=== PATIENT | male | born 1950 | race Caucasian/White ===

== ENCOUNTER 2018-07-23 14:00 | Inpatient (IN) ==
[2018-07-23 15:04] LABS: Basophils % 0.2 %; Eosinophils # 0.1 K/mcL (0.0-0.6); Eosinophils % 1.3 %; Hematocrit 34.2 % (37.5-50.1); Hemoglobin 11.1 g/dL (12.9-16.9); Immature Granulocytes % 0.2 % (0-4); Lymphocytes # 1.8 K/mcL (0.6-4.6); Lymphocytes % 34.3 %; Mean Corpuscular HGB Conc 32.5 g/dL (31.6-35.5); Mean Corpuscular Hemoglobin 31.9 pg (28.0-33.3); Mean Corpuscular Volume 98.3 fL (83.0-100.0); Mean Platelet Volume 9.5 fL (9.4-12.4); Monocytes # 0.5 K/mcL (0.0-1.3); Monocytes % 9.8 %; Neutrophils # 2.8 K/mcL (1.6-8.9); Platelet Count 176 K/mcL (140-400); Red Blood Count 3.48 M/mcL (4.19-5.50); Red Cell Distribution Width 16.1 % (11.5-14.5); Segmented Neutrophils % 54.2 %
--- NOTE | 2018-07-23 15:06 | Emergency Department Note ---
Disposition Clinical Impression: Pneumothorax Qualifiers: Pneumothorax type: unspecified pneumothorax Qualified Code(s): J93.9 - Pneumothorax, unspecified Disposition: Admitted As Inpatient Condition: Fair General Adult HPI - General Chief complaint: ED Shortness of Breath/Dyspnea Stated complaint: "sob sent by " Time Seen by Provider: 07/23/18 14:19 Source: patient Limitations: no limitations - History of Present Illness Pain Scale: 4 - Related Data Home Medications Medication Instructions Recorded Confirmed Aspirin Enteric Coated [Aspirin EC] 81 mg PO DAILY 06/20/15 07/23/18 Atenolol [Tenormin] 50 mg PO DAILY 06/20/15 07/23/18 Atorvastatin [Lipitor] 40 mg PO HS 06/20/15 07/23/18 Garlic [Garlic Oil] 1,000 mg PO DAILY 06/20/15 07/23/18 Multivitamin [Multivitamins] 1 each PO DAILY 06/20/15 07/23/18 Tamsulosin [Flomax] 0.4 mg PO DAILY 06/20/15 07/23/18 Budesonide/Formoterol 160/4.5 2 puff IH BIDR 07/23/18 07/23/18 [Symbicort 160/4.5] Clopidogrel [Plavix] 75 mg PO DAILY 07/23/18 07/23/18 Loratadine [Allergy Relief] 10 mg PO DAILY 07/23/18 07/23/18 Pantoprazole Sodium [Protonix] 20 mg PO DAILY 07/23/18 07/23/18 Tiotropium [Spiriva] 1 puff IH DAILY 07/23/18 07/23/18 Previous Rx's Medication Instructions Recorded Isosorbide MONOnitrate (24 HR) 30 mg PO DAILY #30 tab.er.24h 06/21/15 [Imdur] Albuterol Sulfate [Albuterol 1 puff IH QID PRN #1 puff 03/28/16 Inhaler] Allergies Allergy/AdvReac Type Severity Reaction Status Date / Time Barley AdvReac Diarrhea Verified 07/23/18 14:06 grass pollen-perennial rye, AdvReac Diarrhea Verified 07/23/18 14:06 standar wheat AdvReac Diarrhea Verified 07/23/18 14:06 Past Medical History - Past Medical History Medical history: Reports: non-contributory, asthma, COPD, GERD, hypertension Surgical history: Reports: other Psychiatric history: Reports: no psych history - Social History Smoking Status: Former smoker Smokeless Tobacco Status: No Alcohol use: Reports: heavy, recent Drug use: Reports: none Physical Exam - General Limitations: no limitations General appearance: alert Course Vital Signs Pulse Rate 76 07/23/18 14:04 Respiratory Rate 22 07/23/18 14:04 Blood Pressure 122/7 07/23/18 14:04 O2 Sat by Pulse Oximetry 92 07/23/18 14:04 Temperature 98 F 07/23/18 14:20 Pulse Rate 99 07/23/18 16:45 Respiratory Rate 20 07/23/18 17:10 Blood Pressure 137/92 07/23/18 17:10 O2 Sat by Pulse Oximetry 94 07/23/18 16:45 Oxygen Delivery Oxygen Delivery Nasal Cannula Medical Decision Making - Lab Data Result diagrams: 07/23/18 14:37 07/23/18 14:37 Lab Results 07/23/18 07/23/18 07/23/18 Range/Units 09:57 14:37 14:37 WBC 5.2 (4.3-11.1) K/mcL RBC 3.48 L (4.19-5.50) M/mcL Hgb 11.1 L (12.9-16.9) g/dL Hct 34.2 L (37.5-50.1) % MCV 98.3 (83.0-100.0) fL MCH 31.9 (28.0-33.3) pg MCHC 32.5 (31.6-35.5) g/dL RDW 16.1 H (11.5-14.5) % Plt Count 176 (140-400) K/mcL MPV 9.5 (9.4-12.4) fL Immature Gran % 0.2 (0-4) % Seg Neutrophils % 54.2 % Lymphocytes % 34.3 % Monocytes % 9.8 % Eosinophils % 1.3 % Basophils % 0.2 % Neutrophils # 2.8 (1.6-8.9) K/mcL Lymphocytes # 1.8 (0.6-4.6) K/mcL Monocytes # 0.5 (0.0-1.3) K/mcL Eosinophils # 0.1 (0.0-0.6) K/mcL Basophils # 0.0 (0.0-0.2) K/mcL Sodium 142 (136-145) mEq/L Potassium 4.0 (3.5-5.1) mEq/L Chloride 112 H (98-107) mEq/L Carbon Dioxide 25 (23-29) mEq/L BUN 10 (8-23) mg/dL Creatinine 0.89 (0.70-1.30) mg/dL Est GFR ( Amer) > 60 (> 60) Est GFR (Non-Af Amer) > 60 (> 60) BUN/Creatinine Ratio 11 (6-26) Glucose 64 L (70-105) mg/dL Calculated Osmolality 291 (280-300) Lactic Acid 1.5 (0.5-2.2) mmol/L Calcium 8.9 (8.6-10.3) mg/dL Troponin I < 0.03 (< 0.04) ng/mL B-Natriuretic Peptide (Less than 100) pg/mL 07/23/18 Range/Units 14:37 WBC (4.3-11.1) K/mcL RBC (4.19-5.50) M/mcL Hgb (12.9-16.9) g/dL Hct (37.5-50.1) % MCV (83.0-100.0) fL MCH (28.0-33.3) pg MCHC (31.6-35.5) g/dL RDW (11.5-14.5) % Plt Count (140-400) K/mcL MPV (9.4-12.4) fL Immature Gran % (0-4) % Seg Neutrophils % % Lymphocytes % % Monocytes % % Eosinophils % % Basophils % % Neutrophils # (1.6-8.9) K/mcL Lymphocytes # (0.6-4.6) K/mcL Monocytes # (0.0-1.3) K/mcL Eosinophils # (0.0-0.6) K/mcL Basophils # (0.0-0.2) K/mcL Sodium (136-145) mEq/L Potassium (3.5-5.1) mEq/L Chloride (98-107) mEq/L Carbon Dioxide (23-29) mEq/L BUN (8-23) mg/dL Creatinine (0.70-1.30) mg/dL Est GFR ( Amer) (> 60) Est GFR (Non-Af Amer) (> 60) BUN/Creatinine Ratio (6-26) Glucose (70-105) mg/dL Calculated Osmolality (280-300) Lactic Acid (0.5-2.2) mmol/L Calcium (8.6-10.3) mg/dL Troponin I (< 0.04) ng/mL B-Natriuretic Peptide 106 H (Less than 100) pg/mL Attestation Statement - Attestation Attestation: I examined this patient and my medical decision-making was reviewed with the Resident Physician. I agree with the documented findings, disposition and treatment plan as described except to the extent set forth below. Patient to ED with shortness of breath. Weakness. Patient's 2 days status post needle biopsy with Dr. Rincon. States he has been increasingly dyspneic and weak. On examination he is in no acute distress. Speaking full senses. Good breath sounds bilaterally. Plan. Portable chest shows a pneumothorax on the left with no tension. Patient will need chest tube. Pt is on Plavix. After written consent pneumotach was placed by Dr. Ferguson with my constant supervision. Uncomplicated. Good placement on chest x-ray. Patient has been discuss with pulmonology. Admitted to medicine. Chest X-Ray 07/23/18 16:35 IMPRESSION: Placement of a left-sided chest tube. Decreased size of left apical pneumothorax. Left pleural effusion with left basilar atelectasis. Consolidation of the left lower lobe may represent pulmonary hemorrhage from recent prior biopsy D/ / Evelio Juan MD / Evelio Juan MD Interpreting Provider: Evelio Juan MD
--- NOTE | 2018-07-23 15:07 | Emergency Department Note ---
Disposition Clinical Impression: Pneumothorax Qualifiers: Pneumothorax type: unspecified pneumothorax Qualified Code(s): J93.9 - Pneumothorax, unspecified Disposition: Admitted As Inpatient Condition: Fair General Adult HPI - General Chief complaint: ED Shortness of Breath/Dyspnea Stated complaint: "sob sent by " Time Seen by Provider: 07/23/18 14:19 Source: patient Mode of arrival: ambulatory Limitations: no limitations Nursing Notes Reviewed: Yes Vital Signs Reviewed: Yes - History of Present Illness HPI Narrative: 68-year-old male presents for evaluation of difficulty breathing. Patient did have a needle biopsy by pulmonary 2 days ago. Patient notes worsening dyspnea since then. Patient denies any hemoptysis or cough. No fevers. Patient was sent over by pulmonary. Denies any nausea vomiting. Pain Scale: 4 - Related Data Home Medications Medication Instructions Recorded Confirmed Aspirin Enteric Coated [Aspirin EC] 81 mg PO DAILY 06/20/15 07/23/18 Atenolol [Tenormin] 50 mg PO DAILY 06/20/15 07/23/18 Atorvastatin [Lipitor] 40 mg PO HS 06/20/15 07/23/18 Garlic [Garlic Oil] 1,000 mg PO DAILY 06/20/15 07/23/18 Multivitamin [Multivitamins] 1 each PO DAILY 06/20/15 07/23/18 Tamsulosin [Flomax] 0.4 mg PO DAILY 06/20/15 07/23/18 Budesonide/Formoterol 160/4.5 2 puff IH BIDR 07/23/18 07/23/18 [Symbicort 160/4.5] Clopidogrel [Plavix] 75 mg PO DAILY 07/23/18 07/23/18 Loratadine [Allergy Relief] 10 mg PO DAILY 07/23/18 07/23/18 Pantoprazole Sodium [Protonix] 20 mg PO DAILY 07/23/18 07/23/18 Tiotropium [Spiriva] 1 puff IH DAILY 07/23/18 07/23/18 Previous Rx's Medication Instructions Recorded Isosorbide MONOnitrate (24 HR) 30 mg PO DAILY #30 tab.er.24h 06/21/15 [Imdur] Albuterol Sulfate [Albuterol 1 puff IH QID PRN #1 puff 03/28/16 Inhaler] Allergies Allergy/AdvReac Type Severity Reaction Status Date / Time Barley AdvReac Diarrhea Verified 07/23/18 14:06 grass pollen-perennial rye, AdvReac Diarrhea Verified 07/23/18 14:06 standar wheat AdvReac Diarrhea Verified 07/23/18 14:06 All systems ED: reviewed and negative except as stated. Constitutional: Denies: fever Cardiovascular: Denies: chest pain Respiratory: Reports: dyspnea. Denies: cough Gastrointestinal: Denies: abdominal pain, nausea, vomiting Past Medical History - Past Medical History Source: patient Medical history: Reports: non-contributory, asthma, COPD, GERD, hypertension Surgical history: Reports: other Psychiatric history: Reports: no psych history - Social History Smoking Status: Former smoker Smokeless Tobacco Status: No Alcohol use: Reports: heavy, recent Drug use: Reports: none Physical Exam - General Limitations: no limitations General appearance: alert, in no apparent distress - Head Head exam: atraumatic, normocephalic, normal inspection - Eye Eye exam: Present: normal appearance, PERRL, EOMI - ENT ENT exam: normal exam, normal oropharynx, mucous membranes moist - Neck Neck exam: Present: normal inspection, trachea midline - Chest Chest inspection: Present: normal inspection, symmetric chest wall rise - Respiratory Respiratory exam: Present: normal lung sounds bilaterally. Absent: respiratory distress - Cardiovascular Cardiovascular exam: Present: regular rate, normal rhythm. Absent: systolic murmur - Abdominal Exam Abdominal exam: Present: soft, Non-Tender - Extremities Exam Extremities exam: Present: normal inspection. Absent: pedal edema - Back Exam Back exam: Present: normal inspection - Neurological Exam Neurological exam: Present: alert, oriented X3 - Skin Skin exam: Present: warm, dry, intact, normal color Course Course Narrative: Patient is on 4 L supplemental oxygen. No conversational dyspneic. Patient does not have a tension pneumothorax. Will discuss the case with pulmonary and will admit to the hospital service for observation and oxygen supplementation following decompression. - Consultations Consultation #1: Spoke with Dr. Funez who felt that a pneumo-dart and/or pigtail would be appropriate. States that they will see the patient in the morning. Time: 15:07 Vital Signs Pulse Rate 76 07/23/18 14:04 Respiratory Rate 22 07/23/18 14:04 Blood Pressure 122/7 07/23/18 14:04 O2 Sat by Pulse Oximetry 92 07/23/18 14:04 Temperature 98 F 07/23/18 14:20 Pulse Rate 99 07/23/18 16:45 Respiratory Rate 20 07/23/18 17:10 Blood Pressure 137/92 07/23/18 17:10 O2 Sat by Pulse Oximetry 94 07/23/18 16:45 Oxygen Delivery Oxygen Delivery Nasal Cannula Procedures - Chest Tube Chest Tube 1 Chest Tube Location: mid axillary line Chest Tube Prep: betadine prep, sterile drapes applied Local Anesthetic: lidocaine 1%, with epi Amount of Anesthesia Used (mL): 10 Post Procedure: sutured to skin, sterile dressing applied Tube Drainage: none Post Procedure CXR?: Yes Patient Tolerated Procedure: Yes Medical Decision Making - MDM Narrative Medical decision making narrative: Patient presented for a left-sided pneumothorax status post needle biopsy. Patient did not have a tension pneumothorax. Required some supplemental oxygen. Discussed the case with pulmonary will see the patient on the hospitalist service. Patient required a chest tube with decompression. Patient will be admitted to the hospitalist service. - Lab Data Lab results reviewed: Yes I reviewed the patient's lab results. Result diagrams: 07/23/18 14:37 07/23/18 14:37 Lab Results 07/23/18 07/23/18 07/23/18 Range/Units 09:57 14:37 14:37 WBC 5.2 (4.3-11.1) K/mcL RBC 3.48 L (4.19-5.50) M/mcL Hgb 11.1 L (12.9-16.9) g/dL Hct 34.2 L (37.5-50.1) % MCV 98.3 (83.0-100.0) fL MCH 31.9 (28.0-33.3) pg MCHC 32.5 (31.6-35.5) g/dL RDW 16.1 H (11.5-14.5) % Plt Count 176 (140-400) K/mcL MPV 9.5 (9.4-12.4) fL Immature Gran % 0.2 (0-4) % Seg Neutrophils % 54.2 % Lymphocytes % 34.3 % Monocytes % 9.8 % Eosinophils % 1.3 % Basophils % 0.2 % Neutrophils # 2.8 (1.6-8.9) K/mcL Lymphocytes # 1.8 (0.6-4.6) K/mcL Monocytes # 0.5 (0.0-1.3) K/mcL Eosinophils # 0.1 (0.0-0.6) K/mcL Basophils # 0.0 (0.0-0.2) K/mcL Sodium 142 (136-145) mEq/L Potassium 4.0 (3.5-5.1) mEq/L Chloride 112 H (98-107) mEq/L Carbon Dioxide 25 (23-29) mEq/L BUN 10 (8-23) mg/dL Creatinine 0.89 (0.70-1.30) mg/dL Est GFR ( Amer) > 60 (> 60) Est GFR (Non-Af Amer) > 60 (> 60) BUN/Creatinine Ratio 11 (6-26) Glucose 64 L (70-105) mg/dL Calculated Osmolality 291 (280-300) Lactic Acid 1.5 (0.5-2.2) mmol/L Calcium 8.9 (8.6-10.3) mg/dL Troponin I < 0.03 (< 0.04) ng/mL B-Natriuretic Peptide (Less than 100) pg/mL 07/23/18 Range/Units 14:37 WBC (4.3-11.1) K/mcL RBC (4.19-5.50) M/mcL Hgb (12.9-16.9) g/dL Hct (37.5-50.1) % MCV (83.0-100.0) fL MCH (28.0-33.3) pg MCHC (31.6-35.5) g/dL RDW (11.5-14.5) % Plt Count (140-400) K/mcL MPV (9.4-12.4) fL Immature Gran % (0-4) % Seg Neutrophils % % Lymphocytes % % Monocytes % % Eosinophils % % Basophils % % Neutrophils # (1.6-8.9) K/mcL Lymphocytes # (0.6-4.6) K/mcL Monocytes # (0.0-1.3) K/mcL Eosinophils # (0.0-0.6) K/mcL Basophils # (0.0-0.2) K/mcL Sodium (136-145) mEq/L Potassium (3.5-5.1) mEq/L Chloride (98-107) mEq/L Carbon Dioxide (23-29) mEq/L BUN (8-23) mg/dL Creatinine (0.70-1.30) mg/dL Est GFR ( Amer) (> 60) Est GFR (Non-Af Amer) (> 60) BUN/Creatinine Ratio (6-26) Glucose (70-105) mg/dL Calculated Osmolality (280-300) Lactic Acid (0.5-2.2) mmol/L Calcium (8.6-10.3) mg/dL Troponin I (< 0.04) ng/mL B-Natriuretic Peptide 106 H (Less than 100) pg/mL - Radiology Data Radiology results reviewed: Yes I reviewed the patient's radiology results. Chest X-Ray 07/23/18 14:19 IMPRESSION: Moderately sized left pneumothorax without evidence for tension. Redemonstration of nodules to the left lower lung zone correlating with nodules, one of which was previously biopsied, to the left lower lobe, better demonstrated on prior CT chest 05/25/2018. Findings were discussed with Komal Starkey at 2:54 pm on 07/23/2018. D/ / 07/23/2018 14:57:47 Ruy Torres MD / bruce Interpreting Provider: Ruy Torres MD Chest X-Ray 07/23/18 16:35 IMPRESSION: Placement of a left-sided chest tube. Decreased size of left apical pneumothorax. Left pleural effusion with left basilar atelectasis. Consolidation of the left lower lobe may represent pulmonary hemorrhage from recent prior biopsy D/ / Evelio Juan MD / Evelio Juan MD Interpreting Provider: Evelio Juan MD - EKG Data EKG #1 EKG attestation: Yes I reviewed and interpreted this EKG. EKG shows normal: sinus rhythm Rate: normal Rhythm: NSR Pavilion/QRS: normal Interpretation: no acute changes, nonspecific ST-T wave changes S.Vitaly - Barb Situation: Demographics Background: Presenting Complaint Assessment: Vital Signs, Course and respsone to treatment, Patient/Family Expectation Recommendation: Barrier(s) to disposition, Recommendation based on pending studies, treatments, or consults Barb Report Given to: Dr. Candy Day Repor Time: 15:40
[2018-07-23] MEDS ORDERED: Lidocaine/EPI 1:100k 1% 30 ML VIAL INFILT ONE (15:17)
[2018-07-23] MEDS ORDERED: *HR* FentaNYL (PF) 100 MCG/2 ML VIAL IVP ONE ×2 (15:17→16:49)
[2018-07-23] MEDS ORDERED: *HR* Midazolam HCl 2 MG/2 ML VIAL IVP ONE (15:22)
[2018-07-23 15:25] LABS: Troponin I < 0.03 ng/mL (< 0.04)
[2018-07-23 15:38] LABS: BUN/Creatinine Ratio 11 (6-26); Blood Urea Nitrogen 10 mg/dL (8-23); Calcium 8.9 mg/dL (8.6-10.3); Carbon Dioxide 25 mEq/L (23-29); Chloride 112 mEq/L (98-107); Glucose 64 mg/dL (70-105); Osmolality,Calculated 291 (280-300); Sodium 142 mEq/L (136-145); eGFR For Non-African Americans > 60 (> 60)
[2018-07-23] MEDS ORDERED: Naloxone 0.4 MG/ML INJ IVP PRN (17:36)
--- NOTE | 2018-07-23 17:43 | Internal Med History&Physical ---
Date of Encounter: 07/23/18 Time of Encounter: 17:41 Internal Medicine - H&P: HPI Chief complaint: shortness of breath Admitted From: Home Plans for Post Hospital Care: Home History of present illness: Mr. Adrian is a 68 year old male past medical history of coronary artery disease status post stenting in 2014, celiac disease, hypertension, hyperlipidemia, COPD, and pulmonary nodules status post CT-guided needle biopsy on Thursday. Patient reports that since Thursday after a CT-guided needle biopsy, he has been feeling slightly short of breath. The shortness of breath has been getting worse over the past couple of days, but today while he was playing golf, he shortness of breath became unbearable and he decided to come to the emergency room. He denies dizziness, lightheadedness, but reports pain in the left side of the chest at a location where the CT-guided biopsy was done. In the ED patient was found to have Moderately sized left pneumothorax without evidence for tension. For which placement of a left-sided chest tube was done. Past Med Surg Social Fam HX - Past Medical History Medical history: non-contributory, asthma, COPD, GERD, hypertension Additional medical history: celiac disease Psychiatric history: no psych history - Past Surgical History Surgical History: other Additional surgical history: bilateral wrist surgery. left knee surgery 2011. left elbow surgery. heart stent - Social History Smoking Status: Former smoker Smokeless Tobacco Status: No Alcohol use: heavy, recent Drug use: none Internal Medicine - H&P: Meds Aspirin Enteric Coated [Aspirin EC] 81 mg PO DAILY 06/20/15 [History] Atenolol [Tenormin] 50 mg PO DAILY 06/20/15 [History] Atorvastatin [Lipitor] 40 mg PO HS 06/20/15 [History] Garlic [Garlic Oil] 1,000 mg PO DAILY 06/20/15 [History] Multivitamin [Multivitamins] 1 each PO DAILY 06/20/15 [History] Tamsulosin [Flomax] 0.4 mg PO DAILY 06/20/15 [History] Isosorbide MONOnitrate (24 HR) [Imdur] 30 mg PO DAILY #30 tab.er.24h 06/21/15 [ Rx] Albuterol Sulfate [Albuterol Inhaler] 1 puff IH QID PRN #1 puff 03/28/16 [Rx] Budesonide/Formoterol 160/4.5 [Symbicort 160/4.5] 2 puff IH BIDR 07/23/18 [ History] Clopidogrel [Plavix] 75 mg PO DAILY 07/23/18 [History] Loratadine [Allergy Relief] 10 mg PO DAILY 07/23/18 [History] Pantoprazole Sodium [Protonix] 20 mg PO DAILY 07/23/18 [History] Tiotropium [Spiriva] 1 puff IH DAILY 07/23/18 [History] 3 Allergy/AdvReac Type Severity Reaction Status Date / Time Barley AdvReac Diarrhea Verified 07/23/18 14:06 grass pollen-perennial rye, AdvReac Diarrhea Verified 07/23/18 14:06 standar wheat AdvReac Diarrhea Verified 07/23/18 14:06 All Systems PM: A 10-system review of systems was performed and is negative for pertinent findings except as documented above in the HPI. - Constitutional Constitutional: weakness, no anorexia, no chills, no lethargy - EENT Eyes: no irritation Nose, mouth and throat: no change in voice, no dry mouth, no dysphagia, no mouth pain - Cardiovascular Cardiovascular ROS IM: dyspnea, dyspnea on exertion, no claudication, no diaphoresis, no irregular heart rhythm, no lightheadedness, no palpitations, no paroxysmal nocturnal dyspnea, no syncope - Respiratory Respiratory: cough (Non productive.), dyspnea on exertion, no wheezing, no excessive phlegm production - Gastrointestinal Gastrointestinal: no abdominal pain, no change in bowel habits, no early satiety - Genitourinary Genitourinary ROS male: no difficulty urinating, no nocturia - Musculoskeletal Musculoskeletal ROS IM: no atrophy, no back pain, no limited range of motion - Integumentary Integumentary IM: no erythema - Neurological Neurological ROS: no abnormal hearing, no abnormal movements, no abnormal speech , no confusion - Psychiatric Psychiatric: no anxiety - Endocrine Endocrine IM: no cold intolerance, no flushing, no polyuria - Constitutional Vitals: Temp Pulse Resp BP Pulse Ox 98 F 99 20 137/92 94 07/23/18 14:20 07/23/18 16:45 07/23/18 17:10 07/23/18 17:10 07/23/18 16:45 Exam: General: Alert and oriented 3. In no acute distress. Skin:Normal color, no rash, no lesions. Cardiovascular: Normal S1 & S2, no rubs, murmurs or gallops. No JVD. Pulse regular. Lungs: Clear to auscultation bilaterally, no wheezes or crackles. Left chest tube. Abdomen: Soft, non-tender, no rigidity. Extremities: No deformity, no edema or tenderness, no joint swelling or clubbing. Neurological: Normal cognition and motor skills. Rest of the physical exam is non contributory Internal Med - H&P Results - Labs CBC & Chem 7: 07/23/18 14:37 07/23/18 14:37 - Assessment and plan (1) Pneumothorax Current Visit: Yes Status: Acute Assessment and plan: Possible associated with a CT guided needle biopsy done on Thursday. Plan: - Pulmonology has been consulted - Chest tube insertion on the right chest - Pain control with Tramadol 50mg Q6HR PO PRN - Telemetry monitoring - Incentive Spirometry Qualifiers: Pneumothorax type: unspecified pneumothorax Qualified Code(s): J93.9 - Pneumothorax, unspecified (2) Respiratory distress, acute Current Visit: Yes Status: Acute Assessment and plan: Secondary to pneumothorax. Plan of care as #1. (3) Hypertension Current Visit: Yes Status: Acute Assessment and plan: BP well controlled. Plan: - Atenolol 50mg PO daily. Home dose - Hydralazine 5mg/IV Q6HR PRN for SBP >190 Qualifiers: Hypertension type: unspecified Qualified Code(s): I10 - Essential (primary ) hypertension (4) CAD (coronary artery disease) Current Visit: No Status: Acute Assessment and plan: Patient with a History of stenting on 2104. Plan: - Will hold Aspirin and Plavix until clarified with janitor supervisor about appropriate time to re-start medication. Qualifiers: Coronary Disease-Associated Artery/Lesion type: unspecified vessel or lesion type Associated angina: with unspecified angina Qualified Code(s): I25.119 - Atherosclerotic heart disease of [place] coronary artery with unspecified angina pectoris (5) Dyslipidemia Current Visit: No Status: Chronic Assessment and plan: On statin. Will continue home medications. (6) COPD (chronic obstructive pulmonary disease) Current Visit: Yes Status: Acute Assessment and plan: Plan: - Nebs PRN Qualifiers: COPD type: emphysema Emphysema type: unspecified Qualified Code(s): J43.9 - Emphysema, unspecified (7) Alcohol abuse Current Visit: Yes Status: Acute Assessment and plan: Patient reports drinking about 2 shots of whiskey and 1 six packs or beers every day. Plan: - Lorazepam 1mg/IV Q6HR PRN for DT like symptoms (8) DVT prophylaxis Current Visit: Yes Status: Acute Assessment and plan: No chemical DVT prophylaxis. 'Mechanical DVT prophylaxis with PlexiPulses b/l. - Time Spent With Patient Total time spent is greater than 50% in coordination of care (as documented) at patient's floor/unit and/or counseling patient: Greater than 35 minutes
[2018-07-23] MEDS: Budesonide/Formoterol 80/4.5 MDI IH SCH (19:53)
[2018-07-23] MEDS: traMADol 50 MG TABLET PO PRN (20:00)
[2018-07-23] MEDS: *HR* LORazepam 2 MG/ML VIAL IVP PRN (22:27)
[2018-07-24] MEDS: *HR* LORazepam 2 MG/ML VIAL IVP PRN (03:25)
[2018-07-24 06:22] LABS: Basophils % 0.2 %; Eosinophils # 0.1 K/mcL (0.0-0.6); Eosinophils % 2.7 %; Hematocrit 34.1 % (37.5-50.1); Hemoglobin 11.1 g/dL (12.9-16.9); Immature Granulocytes % 0.5 % (0-4); Lymphocytes # 1.7 K/mcL (0.6-4.6); Lymphocytes % 38.2 %; Mean Corpuscular HGB Conc 32.6 g/dL (31.6-35.5); Mean Corpuscular Hemoglobin 31.9 pg (28.0-33.3); Mean Platelet Volume 9.5 fL (9.4-12.4); Monocytes # 0.4 K/mcL (0.0-1.3); Neutrophils # 2.1 K/mcL (1.6-8.9); Platelet Count 159 K/mcL (140-400); Red Blood Count 3.48 M/mcL (4.19-5.50); Red Cell Distribution Width 15.9 % (11.5-14.5); Segmented Neutrophils % 48.4 %
[2018-07-24 06:41] LABS: BUN/Creatinine Ratio 15 (6-26); Blood Urea Nitrogen 12 mg/dL (8-23); Calcium 8.4 mg/dL (8.6-10.3); Carbon Dioxide 22 mEq/L (23-29); Chloride 108 mEq/L (98-107); Glucose 90 mg/dL (70-105); Osmolality,Calculated 283 (280-300); Phosphorous 3.1 mg/dL (2.7-4.5); Sodium 137 mEq/L (136-145); eGFR For Non-African Americans > 60 (> 60)
--- NOTE | 2018-07-24 06:57 | Pulmonology Consult Note ---
<ArminChito W - Last Filed: 07/24/18 10:54> Date of Encounter: 07/24/18 Medications and Allergies Aspirin Enteric Coated [Aspirin EC] 81 mg PO DAILY 06/20/15 [History] Atenolol [Tenormin] 50 mg PO DAILY 06/20/15 [History] Atorvastatin [Lipitor] 40 mg PO HS 06/20/15 [History] Garlic [Garlic Oil] 1,000 mg PO DAILY 06/20/15 [History] Multivitamin [Multivitamins] 1 each PO DAILY 06/20/15 [History] Tamsulosin [Flomax] 0.4 mg PO DAILY 06/20/15 [History] Isosorbide MONOnitrate (24 HR) [Imdur] 30 mg PO DAILY #30 tab.er.24h 06/21/15 [ Rx] Albuterol Sulfate [Albuterol Inhaler] 1 puff IH QID PRN #1 puff 03/28/16 [Rx] Budesonide/Formoterol 160/4.5 [Symbicort 160/4.5] 2 puff IH BIDR 07/23/18 [ History] Clopidogrel [Plavix] 75 mg PO DAILY 07/23/18 [History] Loratadine [Allergy Relief] 10 mg PO DAILY 07/23/18 [History] Pantoprazole Sodium [Protonix] 20 mg PO DAILY 07/23/18 [History] Tiotropium [Spiriva] 1 puff IH DAILY 07/23/18 [History] 3 Allergy/AdvReac Type Severity Reaction Status Date / Time Barley AdvReac Diarrhea Verified 07/23/18 14:06 grass pollen-perennial rye, AdvReac Diarrhea Verified 07/23/18 14:06 standar wheat AdvReac Diarrhea Verified 07/23/18 14:06 All Systems: The remainder of the systems were reviewed and are negative Physical Examination Vital Signs: Vital Signs, Last 4 Hours Temp Pulse Resp BP Pulse Ox 07/24/18 10:23 75 18 135/91 94 07/24/18 07:23 14 93 07/24/18 06:56 98.2 F 73 18 135/90 93 Results - Laboratory Findings CBC and BMP: 07/24/18 06:12 07/24/18 06:12 Abnormal lab findings: Abnormal lab results RBC 3.48 M/mcL (4.19-5.50) L 07/24/18 06:12 Hgb 11.1 g/dL (12.9-16.9) L 07/24/18 06:12 Hct 34.1 % (37.5-50.1) L 07/24/18 06:12 RDW 15.9 % (11.5-14.5) H 07/24/18 06:12 Chloride 108 mEq/L (98-107) H 07/24/18 06:12 Carbon Dioxide 22 mEq/L (23-29) L 07/24/18 06:12 Calcium 8.4 mg/dL (8.6-10.3) L 07/24/18 06:12 B-Natriuretic Peptide 106 pg/mL (Less than 100) H 07/23/18 14:37 - Clinical Findings Intake & Output: Intake & Output 07/23/18 07/24/18 07/24/18 23:59 07:59 15:59 Intake Total 240 / 240 Output Total 217 / 217 809 / 809 250 / 250 Balance -217 / -217 -569 / -569 -250 / -250 Weight 97 kg 97 kg Consult Discharge Plan - Plan [facility]: [facility] Care Provider[facility] - - Attending Attestation I examined this patient and my medical decision-making was reviewed with the Resident Physician. I agree with the documented findings, disposition and treatment plan as described except to the extent set forth below. We independently had [id number] contact with the patient Patient seen and examined at bedside Labs, radiology, chart personally reviewed. Impression: -Iatrogenic pneumothorax -PET avid lung nodule -COPD Recs: -Chest tube to waterseal now repeat chest x-ray can remove if no pneumothorax -Follow-up outpatient pulmonary for pathology results and plan of care -Continue bronchodilators <Nomi Weir - Last Filed: 07/24/18 11:40> Date of Encounter: 07/24/18 Time of Encounter: 07:55 Assessment and Plan (1) Pneumothorax Current Visit: Yes Status: Acute Likely 2/[address] guided biopsy 3 days ago for pulmonary nodules. Progressive SOB since, L apical pneumothorax found in ED yesterday. L apical chest tube placed in ED. Has been on wall suction overnight. CXR this morning indicated pneumothorax no longer seen. Plan to place on water seal this morning and repeat cxr. If stable after cxr, we can remove chest tube and monitor for a couple hours after removal. Ok to dc home if no suspicion of recurrent pneumo after chest tube removal. Continue to increase use of IS. Qualifiers: Pneumothorax type: unspecified pneumothorax Qualified Code(s): J93.9 - Pneumothorax, unspecified (2) COPD (chronic obstructive pulmonary disease) Current Visit: Yes Status: Acute Dr Willis pt. On spiriva, symbicort, and rescue albuterol at home. No home O2. Continue current therapy. Qualifiers: COPD type: emphysema Emphysema type: unspecified Qualified Code(s): J43.9 - Emphysema, unspecified History of Present Illness Consult date: 07/24/18 Requesting physician: Scot Ferguson Reason for consult: pneumothorax Chief complaint: SOB History of present illness: Mr Adrian is a 68 year old man with pmh significant for COPD, asthma, CAD s/p LAD stent 2014, and pulmonary nodule s/p CT guided biopsy on 3 days ago. Since the pulmonary nodule biopsy 3 days ago he has had increasing SOB from baseline. While attempting to plaay golf yesterday he became very SOB he said was unbearable and decided to go to ED. A L apical pneumothorax was discovered in the ED and L apical chest tube placed. Today, he says he is breathing better but has L peristernal chest pain he describes as a sharp stabbing pain when attempting to take a deep breath. He has been using IS marginally due to pain while trying to use more effort. He additionally has a non productive cough that is not new or worsening from baseline. Culture from May 2018 bronch grew Aspergillus fumigatus and was not started on antifungals due to medication side effects. Denies subjective fever/chills, hemoptysis, pain where chest tube enters, dysphagia, N/V or abdominal pain. He uses spiriva, symbicort, and albuterol at home for COPD as prescribed, he is followed by Dr Willis as outpatient. Past Med Surg Social Fam HX - Past Medical History Medical history: non-contributory, asthma, COPD, GERD, hypertension Additional medical history: celiac disease, sleep apnea Psychiatric history: no psych history - Past Surgical History Surgical History: other Additional surgical history: bilateral wrist surgery. left knee surgery 2011. left elbow surgery. heart stent - Social History Smoking Status: Former smoker Smokeless Tobacco Status: No Alcohol use: heavy, recent Drug use: none - Family History Father Living Status: Age at : 59 Cause of : Leukemia Hx Family Cancer: Yes (Leukemia) Mother Living Status: Age at : 82 Cause of : Brain annurysm Hx Family Cardiac Disorders: Yes (CAD, [place], HTN, CHF, HLD) All Systems: The remainder of the systems were reviewed and are negative Physical Examination Vital Signs: Vital Signs, Last 4 Hours Temp Pulse Resp BP Pulse Ox 07/24/18 04:00 98.2 F 65 16 150/93 96 07/24/18 03:39 15 93 General appearance: no acute distress, alert, other (L chest tube in place, serosanguinous discharge, on wall suction, no airleaks with coughing. ) Eyes: nonicteric ENT: oropharynx moist Effort: normal Auscultation: bilateral: diminished breath sounds (Basilar L>R), other (Shallow , pain with deep inspiration ) Cardiovascular: regular rate and rhythm Gastrointestinal: normoactive bowel sounds, soft, non-tender, non-distended Extremities: no cyanosis, no edema mood appropriate Results - Laboratory Findings CBC and BMP: 07/24/18 06:12 07/24/18 06:12 Abnormal lab findings: Abnormal lab results RBC 3.48 M/mcL (4.19-5.50) L 07/24/18 06:12 Hgb 11.1 g/dL (12.9-16.9) L 07/24/18 06:12 Hct 34.1 % (37.5-50.1) L 07/24/18 06:12 RDW 15.9 % (11.5-14.5) H 07/24/18 06:12 Chloride 108 mEq/L (98-107) H 07/24/18 06:12 Carbon Dioxide 22 mEq/L (23-29) L 07/24/18 06:12 Calcium 8.4 mg/dL (8.6-10.3) L 07/24/18 06:12 B-Natriuretic Peptide 106 pg/mL (Less than 100) H 07/23/18 14:37 - Clinical Findings Intake & Output: Intake & Output 07/23/18 07/23/18 07/24/18 15:59 23:59 07:59 Intake Total 240 / 240 Output Total 217 / 217 809 / 809 Balance -217 / -217 -569 / -569 Weight 97 kg 97 kg
[2018-07-24] MEDS: Budesonide/Formoterol 80/4.5 MDI IH SCH (07:23)
[2018-07-24] MEDS: traMADol 50 MG TABLET PO PRN (09:47)
[2018-07-24 10:24] VITALS: BP 135/91
--- NOTE | 2018-07-24 12:46 | Event Note ---
Date of Encounter: 07/24/18 Time of Encounter: 12:43 Patient with radiographic stability after waterseal trial without evidence of air leak. Chest tube was removed at bedside and petroleum gauze dressing with overlying Tegaderm applied as occlusive dressing patient tolerated without cardiopulmonary complication and was monitored on telemetry the entire time. Chest x-ray pending at this time. If no evidence of pneumothorax recommend monitoring for the next 2-3 hours inpatient and then if stable can be discharged safely from a pulmonary perspective with outpatient pulmonary follow- up. I explained to the patient that if he has any symptoms of worsening dyspnea or chest pain to return to the emergency room at once or call 911.
--- NOTE | 2018-07-24 13:46 | Discharge Summary ---
- NOTES TO OUTPATIENT PROVIDER Notes to Outpatient Provider: With the contract lead within a week. Date of Encounter: 07/24/18 Time of Encounter: 13:44 - Discharge Diagnosis (1) Pneumothorax Priority: Primary Status: Resolved Assessment and Plan: Following a CT-guided biopsy. Qualifiers: Pneumothorax type: unspecified pneumothorax Qualified Code(s): J93.9 - Pneumothorax, unspecified (2) Respiratory distress, acute Priority: Secondary Status: Resolved (3) Hypertension Priority: Secondary Status: Chronic Qualifiers: Hypertension type: unspecified Qualified Code(s): I10 - Essential (primary ) hypertension (4) CAD (coronary artery disease) Priority: Secondary Status: Chronic Qualifiers: Coronary Disease-Associated Artery/Lesion type: unspecified vessel or lesion type Associated angina: with unspecified angina Qualified Code(s): I25.119 - Atherosclerotic heart disease of [place] coronary artery with unspecified angina pectoris (5) Dyslipidemia Priority: Secondary Status: Chronic (6) COPD (chronic obstructive pulmonary disease) Priority: Secondary Status: Chronic Qualifiers: COPD type: emphysema Emphysema type: unspecified Qualified Code(s): J43.9 - Emphysema, unspecified (7) Alcohol abuse Priority: Secondary Status: Chronic (8) DVT prophylaxis Priority: Secondary Status: Chronic Hospital course: Mr. Adrian is a 68 year old male patient presented to the emergency room complaining of shortness of breath. Patient found to have left lung pneumothorax. Patient reports that 3 days before his presentation to the emergency room, he had a CT-guided biopsy done, for a lung nodule. Patient treated with insertion of a chest tube. After 24-hour chest tube was changed to waterseal, removed after the pneumothorax had resolved. Following x-ray showed resolution of the pneumothorax. Pulmonology recommended to discharge the patient on following up with them within a week. - Time Spent with Patient Total time spent providing and/or coordinating discharge services: Less than 30 minutes - Discharge Medications Home Medications: Aspirin Enteric Coated [Aspirin EC] 81 mg PO DAILY 06/20/15 [History] Atenolol [Tenormin] 50 mg PO DAILY 06/20/15 [History] Atorvastatin [Lipitor] 40 mg PO HS 06/20/15 [History] Garlic [Garlic Oil] 1,000 mg PO DAILY 06/20/15 [History] Multivitamin [Multivitamins] 1 each PO DAILY 06/20/15 [History] Tamsulosin [Flomax] 0.4 mg PO DAILY 06/20/15 [History] Isosorbide MONOnitrate (24 HR) [Imdur] 30 mg PO DAILY #30 tab.er.24h 06/21/15 [ Rx] Albuterol Sulfate [Albuterol Inhaler] 1 puff IH QID PRN #1 puff 03/28/16 [Rx] Budesonide/Formoterol 160/4.5 [Symbicort 160/4.5] 2 puff IH BIDR 07/23/18 [ History] Clopidogrel [Plavix] 75 mg PO DAILY 07/23/18 [History] Loratadine [Allergy Relief] 10 mg PO DAILY 07/23/18 [History] Pantoprazole Sodium [Protonix] 20 mg PO DAILY 07/23/18 [History] Tiotropium [Spiriva] 1 puff IH DAILY 07/23/18 [History] Allergies/Adverse Reactions: 3 Allergy/AdvReac Type Severity Reaction Status Date / Time Barley AdvReac Diarrhea Verified 07/23/18 14:06 grass pollen-perennial rye, AdvReac Diarrhea Verified 07/23/18 14:06 standar wheat AdvReac Diarrhea Verified 07/23/18 14:06 Date of admission: 07/23/18 16:47 [facility] care physician: [facility] - Constitutional Vitals: Temp Pulse Resp BP Pulse Ox 98.2 F 75 18 135/91 94 07/24/18 06:56 07/24/18 10:23 07/24/18 11:28 07/24/18 10:23 07/24/18 11:28 Exam: General: Alert and oriented 3. In no acute distress. Skin:Normal color, no rash, no lesions. Cardiovascular: Normal S1 & S2, no rubs, murmurs or gallops. No JVD. Pulse regular. Lungs: Clear to auscultation bilaterally, no wheezes or crackles. Abdomen: Soft, non-tender, no rigidity. Extremities: No deformity, no edema or tenderness, no joint swelling or clubbing. Neurological: Normal cognition and motor skills. CN II-XII intact. Rest of the physical exam is non contributory - Patient Status Disposition: Home, Self-Care Condition: Good Functional capacity at discharge: independent ambulation Overall status at discharge: patient is back to baseline - Discharge Instructions Follow Up With: [facility] [Primary Care Provider[facility] - - Diet and Activity Activity: resume usual activities as tolerated Diet: advance to your usual diet - VTE Documentation of Mechanical Device: Intermittent pneumatic compression device
[2018-07-25] MEDS ORDERED: Aspirin 81 MG TAB.CHEW PO SCH (09:00)
--- NOTE | 2018-07-26 16:58 | Electrocardiograph Report ---
[place] [id number] Test Date: 2018-07-23 Pat Name: Narinder Adrian Department: EXAM19 Room: [id number] Gender: M Core Manager: : [id number] Requested By: Scot Ferguson Order Number: [id number] Reading MD: Mika Montgomery Measurements Intervals [place] Rate: 77 P: 45 UT: 173 QRS: -32 QRSD: 100 T: 61 QT: 401 QTc: 454 Interpretive Statements Sinus rhythm Left axis deviation Borderline low voltage, extremity leads Electronically Signed On 07-26-2018 16:56:41 EDT by Mika Montgomery
== END 2018-07-24 16:04 | disposition home or self-care (01) | DRG 201 ==
LOC: EMEROOARM 14:00 → SUATTDRO 16:47 → 2NENU 16:47
PROVIDERS: ADMIT Internal Medicine; ATTEND Internal Medicine

== ENCOUNTER 2020-02-25 07:52 | Inpatient (IN) ==
[2020-02-25 08:35] LABS: Hematocrit 24.8 % (37.5-50.1); Hemoglobin 8.3 g/dL (12.9-16.9); Immature Platelets 2.1 % (1.1-6.1); Mean Corpuscular HGB Conc 33.5 g/dL (31.6-35.5); Mean Corpuscular Hemoglobin 37.1 pg (28.0-33.3); Mean Corpuscular Volume 110.7 fL (83.0-100.0); Mean Platelet Volume 9.1 fL (9.4-12.4); Platelet Count 118 K/mcL (140-400); Red Blood Count 2.24 M/mcL (4.19-5.50); Red Cell Distribution Width 14.5 % (11.5-14.5); White Blood Count 2.1 K/mcL (4.3-11.1)
[2020-02-25 08:52] LABS: BUN/Creatinine Ratio 14 (6-26); Blood Urea Nitrogen 13 mg/dL (8-23); Calcium 8.7 mg/dL (8.6-10.3); Carbon Dioxide 24 mEq/L (23-29); Chloride 107 mEq/L (98-107); Glucose 100 mg/dL (70-105); Osmolality,Calculated 284 (280-300); Potassium 4.1 mEq/L (3.5-5.1); Sodium 137 mEq/L (136-145); eGFR For African Americans > 60 (> 60); eGFR For Non-African Americans > 60 (> 60)
[2020-02-25 08:58] LABS: Eosinophils # 0.1 K/mcL (0.0-0.6); Lymphocytes # 1.6 K/mcL (0.6-4.6); Monocytes # 0.3 K/mcL (0.0-1.3); Neutrophils # 0.1 K/mcL (1.6-8.9)
[2020-02-25 09:00] LABS: Anisocytosis 1+ (Not Present); Platelet Estimate Decreased (Normal)
[2020-02-25 09:01] LABS: Reactive Lymphocytes Present (Not Present)
[2020-02-25] MEDS ORDERED: cefTRIAXone 1,000 MG in 0.9 % Sodium Chloride Mini Bag 100 ML IVPB ONE (09:11)
[2020-02-25] MEDS ORDERED: 0.9 % Sodium Chloride 1,000 ML IV ONE (09:25)
[2020-02-25] MEDS ORDERED: Ondansetron 4 MG/2 ML VIAL IVP PRN (09:35)
[2020-02-25] MEDS ORDERED: D5% in Water 1,000 ML IVC PRN (09:35)
[2020-02-25] MEDS ORDERED: Acetaminophen 325 MG TABLET PO PRN (09:35)
[2020-02-25] MEDS ORDERED: Naloxone 0.4 MG/ML INJ IVP PRN (09:35)
[2020-02-25] MEDS ORDERED: *HR* Dextrose 50 % in Water (Syg) 50 ML SYRINGE IVP PRN (09:35)
[2020-02-25] MEDS ORDERED: Dextrose Gel 15 GM/37.5 ML TUBE PO PRN ×2 (09:35)
[2020-02-25] MEDS ORDERED: *HR* HYDROmorphone (PF) 1 MG/ML SYRINGE IVP ONE (09:39)
[2020-02-25] MEDS ORDERED: Vancomycin 1,750 MG in 0.9 % Sodium Chloride 250 ML IVPB SCH (10:00)
[2020-02-25 11:17] LABS: Albumin 3.9 g/dL (3.5-5.7); Albumin/Globulin Ratio 1.6 (1.1-2.2); Bilirubin,Direct 0.1 mg/dL (0.0-0.2); Bilirubin,Indirect 0.3 mg/dL (0.0-1.0); Bilirubin,Total 0.4 mg/dL (0.3-1.0); Globulin 2.5 g/dL (2.4-3.5); Total Protein 6.4 g/dL (6.4-8.9)
[2020-02-25] MEDS: *HR* OxyCODONE Immed Rel 5 MG TABLET PO PRN ×2 (13:05→20:42)
[2020-02-25] MEDS: *HR* Heparin 5,000 UNIT/ML VIAL SQ SCH ×2 (14:18→20:43)
[2020-02-25] MEDS: Cefepime HCl 1,000 MG in Water for inj. (sterile) 10 ML IVP SCH (15:27)
[2020-02-25] MEDS: Budesonide/Formoterol 160/4.5 1 PUFF INH IH SCH ×2 (16:56→21:21)
[2020-02-25] MEDS: *HR* HYDROcodone/Acet 5/325 mg TABLET PO PRN (18:34)
[2020-02-26] MEDS: Cefepime HCl 1,000 MG in Water for inj. (sterile) 10 ML IVP SCH ×3 (00:40→17:18)
[2020-02-26] MEDS: *HR* Heparin 5,000 UNIT/ML VIAL SQ SCH ×3 (05:43→21:39)
[2020-02-26 07:23] LABS: Eosinophils % 0.4 %; Immature Granulocytes % 0.4 % (0-4)
[2020-02-26 07:25] LABS: Hematocrit 20.9 % (37.5-50.1); Immature Platelets 2.4 % (1.1-6.1); Lymphocytes # 1.5 K/mcL (0.6-4.6); Lymphocytes % 61.6 %; Mean Corpuscular HGB Conc 33.5 g/dL (31.6-35.5); Mean Corpuscular Hemoglobin 37.6 pg (28.0-33.3); Mean Corpuscular Volume 112.4 fL (83.0-100.0); Mean Platelet Volume 9.3 fL (9.4-12.4); Monocytes # 0.8 K/mcL (0.0-1.3); Neutrophils # 0.1 K/mcL (1.6-8.9); Platelet Count 109 K/mcL (140-400); Red Blood Count 1.86 M/mcL (4.19-5.50); Red Cell Distribution Width 14.6 % (11.5-14.5); Segmented Neutrophils % 2.6 %; White Blood Count 2.4 K/mcL (4.3-11.1)
[2020-02-26 07:27] LABS: INR 1.1
[2020-02-26 07:42] LABS: BUN/Creatinine Ratio 14 (6-26); Blood Urea Nitrogen 14 mg/dL (8-23); Calcium 7.9 mg/dL (8.6-10.3); Carbon Dioxide 25 mEq/L (23-29); Chloride 107 mEq/L (98-107); Glucose 99 mg/dL (70-105); Osmolality,Calculated 283 (280-300); Potassium 3.8 mEq/L (3.5-5.1); Sodium 136 mEq/L (136-145); eGFR For African Americans > 60 (> 60); eGFR For Non-African Americans > 60 (> 60)
[2020-02-26 07:53] LABS: Anisocytosis 1+ (Not Present); Platelet Estimate Decreased (Normal)
[2020-02-26 07:54] LABS: Reactive Lymphocytes Present (Not Present)
[2020-02-26] MEDS: Aspirin Enteric Coated 81 MG Tablet PO SCH (08:00)
[2020-02-26] MEDS: atenoloL 50 MG TABLET PO SCH (08:03)
[2020-02-26] MEDS: Loratadine 10 MG TABLET PO SCH (08:03)
[2020-02-26] MEDS: Folic Acid 1 MG TABLET PO SCH (08:03)
[2020-02-26] MEDS: Thiamine (B-1) 100 MG TABLET PO SCH (08:03)
[2020-02-26] MEDS: *HR* HYDROcodone/Acet 5/325 mg TABLET PO PRN ×2 (08:03→17:23)
[2020-02-26] MEDS: Vitamin B Complex/Vit C/Vit E 1 EACH TABLET PO SCH (08:03)
[2020-02-26 08:07] LABS: Folate 16.5 ng/mL (3.0-16.0)
[2020-02-26] MEDS: Budesonide/Formoterol 160/4.5 1 PUFF INH IH SCH ×2 (09:57→21:58)
[2020-02-26] MEDS ORDERED: Bupivacaine/EPI 1:200k 0.5%PF 10 ML VIAL ONE (10:16)
[2020-02-26] MEDS ORDERED: *HR* Propofol 200 MG/20 ML VIAL IVP ONE (10:31)
[2020-02-26] MEDS ORDERED: Lidocaine -MPF 2% 2 ML VIAL ONE (10:31)
[2020-02-26] MEDS ORDERED: *HR* FentaNYL (PF) 100 MCG/2 ML VIAL ONE (10:32)
[2020-02-26] MEDS ORDERED: Lidocaine/EPI 1:200k 1% PF 10 ML VIAL ONE (10:44)
[2020-02-26] MEDS ORDERED: Lidocaine/EPI 1:100k 2% 20 ML VIAL ONE (10:44)
[2020-02-26 11:23] LABS: Thyroid Stimulating Hormone 20.288 mcIU/mL (0.340-5.600)
[2020-02-26] MEDS: *HR* OxyCODONE Immed Rel 5 MG TABLET PO PRN (12:37)
[2020-02-26] MEDS ORDERED: 0.9 % Sodium Chloride 250 ML ONE (14:05)
[2020-02-27 00:59] LABS: Hemoglobin 8.2 g/dL (12.9-16.9); Mean Corpuscular HGB Conc 32.8 g/dL (31.6-35.5); Mean Corpuscular Hemoglobin 35.7 pg (28.0-33.3); Mean Corpuscular Volume 108.7 fL (83.0-100.0); Mean Platelet Volume 9.2 fL (9.4-12.4); Nucleated Red Blood Cells 0.7 /100 WBC (0)
[2020-02-27 01:01] LABS: Eosinophils % 0.7 %; Immature Granulocytes % 0.7 % (0-4); Immature Platelets 2.3 % (1.1-6.1); Lymphocytes % 72.9 %; Monocytes % 23.1 %; Neutrophils # 0.1 K/mcL (1.6-8.9); Platelet Count 106 K/mcL (140-400); Red Cell Distribution Width 17.2 % (11.5-14.5); Segmented Neutrophils % 2.6 %; White Blood Count 2.8 K/mcL (4.3-11.1)
[2020-02-27 01:04] LABS: Monocytes # 0.7 K/mcL (0.0-1.3)
[2020-02-27 01:22] LABS: BUN/Creatinine Ratio 13 (6-26); Blood Urea Nitrogen 12 mg/dL (8-23); Calcium 8.4 mg/dL (8.6-10.3); Carbon Dioxide 26 mEq/L (23-29); Chloride 106 mEq/L (98-107); Glucose 93 mg/dL (70-105); Osmolality,Calculated 281 (280-300); Potassium 4.1 mEq/L (3.5-5.1); Sodium 136 mEq/L (136-145); eGFR For African Americans > 60 (> 60); eGFR For Non-African Americans > 60 (> 60)
[2020-02-27] MEDS: *HR* OxyCODONE Immed Rel 5 MG TABLET PO PRN ×2 (01:32→21:58)
[2020-02-27] MEDS: Cefepime HCl 1,000 MG in Water for inj. (sterile) 10 ML IVP SCH ×3 (01:33→15:30)
[2020-02-27 01:38] LABS: Anisocytosis 1+ (Not Present); Microcytosis Present (Not Present)
[2020-02-27 01:39] LABS: Platelet Estimate Slight Decrease (Normal); Reactive Lymphocytes Present (Not Present)
[2020-02-27] MEDS: *HR* Heparin 5,000 UNIT/ML VIAL SQ SCH ×3 (06:02→21:58)
[2020-02-27] MEDS: atenoloL 50 MG TABLET PO SCH (07:17)
[2020-02-27] MEDS: Loratadine 10 MG TABLET PO SCH (07:17)
[2020-02-27] MEDS: Aspirin Enteric Coated 81 MG Tablet PO SCH (07:17)
[2020-02-27] MEDS: Folic Acid 1 MG TABLET PO SCH (07:17)
[2020-02-27] MEDS: Thiamine (B-1) 100 MG TABLET PO SCH (07:17)
[2020-02-27] MEDS: Isosorbide MONOnitrate (24 HR) 30 MG TAB.ER.24H PO SCH (07:17)
[2020-02-27] MEDS: Vitamin B Complex/Vit C/Vit E 1 EACH TABLET PO SCH (07:18)
[2020-02-27] MEDS: Budesonide/Formoterol 160/4.5 1 PUFF INH IH SCH ×2 (07:55→20:01)
[2020-02-27] MEDS ORDERED: Isovue-370 500 ML BOTTLE IVP ONE ×2 (13:29→13:41)
[2020-02-27 16:58] LABS: Immature Reticulocyte % 19.2 % (11.0-38.0); Retculocyte # 0.01 M/mcL (0.05-0.10); Reticulocyte % 0.6 % (1.6-2.8)
[2020-02-27 17:13] LABS: Uric Acid 5.3 mg/dL (2.3-7.6)
[2020-02-28] MEDS: Cefepime HCl 1,000 MG in Water for inj. (sterile) 10 ML IVP SCH ×2 (00:07→07:24)
[2020-02-28] MEDS: *HR* Heparin 5,000 UNIT/ML VIAL SQ SCH ×2 (03:06→13:53)
[2020-02-28 05:47] LABS: Red Blood Count 2.17 M/mcL (4.19-5.50); Red Cell Distribution Width 16.7 % (11.5-14.5)
[2020-02-28 05:49] LABS: Hematocrit 23.2 % (37.5-50.1); Hemoglobin 7.9 g/dL (12.9-16.9); Immature Platelets 2.5 % (1.1-6.1); Mean Corpuscular HGB Conc 34.1 g/dL (31.6-35.5); Mean Corpuscular Hemoglobin 36.4 pg (28.0-33.3); Mean Corpuscular Volume 106.9 fL (83.0-100.0); Mean Platelet Volume 8.9 fL (9.4-12.4); White Blood Count 2.5 K/mcL (4.3-11.1)
[2020-02-28 05:59] LABS: Platelet Count 98 K/mcL (140-400)
[2020-02-28 06:40] LABS: Anisocytosis 1+ (Not Present); Lymphocytes # 2.5 K/mcL (0.6-4.6)
[2020-02-28 06:41] LABS: Reactive Lymphocytes Present (Not Present)
[2020-02-28 06:42] LABS: Platelet Estimate Slight Decrease (Normal)
[2020-02-28] MEDS: Folic Acid 1 MG TABLET PO SCH (07:26)
[2020-02-28] MEDS: Aspirin Enteric Coated 81 MG Tablet PO SCH (07:26)
[2020-02-28] MEDS: Vitamin B Complex/Vit C/Vit E 1 EACH TABLET PO SCH (07:26)
[2020-02-28] MEDS: Loratadine 10 MG TABLET PO SCH (07:26)
[2020-02-28] MEDS: atenoloL 50 MG TABLET PO SCH (07:26)
[2020-02-28] MEDS: Isosorbide MONOnitrate (24 HR) 30 MG TAB.ER.24H PO SCH (07:27)
[2020-02-28] MEDS: Thiamine (B-1) 100 MG TABLET PO SCH (07:27)
[2020-02-28] MEDS: Budesonide/Formoterol 160/4.5 1 PUFF INH IH SCH (08:31)
[2020-02-28] MEDS ORDERED: Doxycycline 100 MG CAPSULE PO SCH (09:00)
[2020-02-28] MEDS ORDERED: Cyanocobalamin (B-12) 1,000 MCG TABLET PO SCH (09:00)
[2020-02-28] MEDS ORDERED: *HR* FentaNYL (PF) 100 MCG/2 ML VIAL IVP ONE (12:12)
[2020-02-28] MEDS ORDERED: *HR* Midazolam HCl 2 MG/2 ML VIAL IVP ONE (12:13)
[2020-02-28] MEDS ORDERED: 0.9 % Sodium Chloride 500 ML ONE (12:14)
[2020-02-28 14:54] VITALS: BP 93/58
[2020-02-28] MEDS ORDERED: Aminoglycoside Consult 1 EACH MC ONE ×2 (16:07)
[2020-03-01 09:08] LABS: Immunoglobulin A 175 mg/dL (68-408); Immunoglobulin G 916 mg/dL (768-1632); Immunoglobulin M 73 mg/dL (35-263)
[2020-03-01 11:21] LABS: Kappa Qnt Free Light Chains 30.81 mg/L (3.30-19.40); Lambda Qnt Free Light Chains 21.89 mg/L (5.71-26.30)
[2020-03-02 16:25] LABS: Alpha 2 Globulin (PEP) 0.87 g/dL (0.48-1.05); Beta Globulin (PEP) 0.61 g/dL (0.48-1.10)
[2020-03-03 12:00] LABS: IFE Reflexed IFE Done
[2020-03-05 07:18] LABS: PML-RARA Translocation NOT DETECTED
[2020-03-06 19:48] LABS: BCR-ABL1 Specimen Source NOT SPECIFIED
== END 2020-02-28 16:08 | disposition home or self-care (01) | DRG 580 ==
LOC: EMEROOARM 07:52 → 3ANU 07:52 → SUATTDRO 10:10 → 3ANU 11:00
PROVIDERS: ADMIT Student in an Organized Health Care Education/Training Program; ATTEND Internal Medicine